=== PATIENT | female | born 1950 | race African-American/Black ===

== ENCOUNTER 2020-06-09 07:21 | Inpatient (IN) ==
[2020-06-09] MEDS ORDERED: PIPERACILLIN/TAZOBACTAM 3,375 MG in SODIUM CHLORIDE 0.9% 100 ML IV STA (07:47)
[2020-06-09] MEDS ORDERED: SODIUM CHLORIDE 0.9% 1,000 ML IV STA (07:47)
[2020-06-09 08:22] LABS: Basophils % 0.2 % (0.0-0.8); Eosinophils % 0.1 % (0.00-10.9); Hematocrit 41.3 VOL% (35.7-47.0); Hemoglobin 13.7 GM/DL (12.0-16.0); Immature Granulocytes % 0.6 %; Immature Granulocytes Absolute 0.12 #; Lymphocytes # 2.8 10*3/uL (1.4-4.0); Lymphocytes % 14.5 % (21.3-54.2); Mean Corpuscular HGB Conc 33.2 GM/DL (32-36); Mean Corpuscular Volume 98.6 FL (87-102); Mean Platelet Volume 10.4 FL (9.6-12.0); Monocytes % 13.2 % (1.7-12.7); Neutrophils % 71.4 % (38.7-73.9); Platelet Count 311 T/CUMM (130-400); Red Blood Count 4.19 MC/CUMM (3.8-5.5); Red Cell Distribution Width 14.4 % (9.3-17.3); White Blood Count 18.9 T/CUMM (4-12)
[2020-06-09 08:42] LABS: Bacteria,Urine Occasional /HPF (Few); Bilirubin,Urine Negative (Negative); Blood, Urine Moderate mg/dL (Negative); Glucose,Urine (UA) Negative (Negative); Ketones,Urine 5 mg/dL (Negative); Mucus,Urine Many /LPF (Occasional); Nitrite,Urine Negative (Negative); Protein,Urine 30 MG/DL; RBC,Urine 30 /HPF (0-4); Squamous Epithelial Cell,Urine Moderate /HPF (0-10); Urine Appearance Slightly Hazy (Clear); Urine Color Amber (Yellow); Urine Specific Gravity 1.025 (1.001-1.035); WBC,Urine 2 /HPF (0-6)
[2020-06-09 08:55] LABS: Osmolality,Calculated 274.8 MOS/KG (273-304)
[2020-06-09] MEDS ORDERED: ONDANSETRON 4 MG/2 ML VIAL IV STA (09:32)
[2020-06-09] MEDS ORDERED: HYDROmorphone 2 MG/1 ML VIAL IV STA (09:32)
[2020-06-09] MEDS ORDERED: ONDANSETRON 4 MG/2 ML VIAL ONE (09:33)
[2020-06-09] MEDS ORDERED: HYDROmorphone 2 MG/1 ML VIAL ONE (09:33)
[2020-06-09] MEDS ORDERED: DEXTROSE 50% 25 GM/50 ML VIAL IV PRN (10:25)
[2020-06-09] MEDS ORDERED: GLUCAGON 1 MG VIAL IM PRN (10:25)
[2020-06-09] MEDS ORDERED: MORPHINE 4 MG/1 ML VIAL IV PRN (10:25)
[2020-06-09] MEDS ORDERED: ONDANSETRON 4 MG/2 ML VIAL IV PRN (10:25)
[2020-06-09] MEDS ORDERED: ALBUTEROL 2.5 MG/3 ML NEB RESP TX PRN (10:29)
[2020-06-09] MEDS: PANTOPRAZOLE 40 MG VIAL IV SCH (19:27)
[2020-06-09] MEDS: metroNIDAZOLE INJ 500 MG in PREMIX 1 EACH IV SCH ×2 (19:52→20:29)
[2020-06-09] MEDS: cefTRIAXone 2,000 MG in SYRINGE 1 EACH IV SCH (19:53)
[2020-06-09] MEDS: ENOXAPARIN 40 MG/0.4 ML SYRINGE SUBCUT SCH (19:53)
[2020-06-09] MEDS: MONTELUKAST 10 MG TABLET PO SCH (21:08)
[2020-06-09] MEDS: BUDESONIDE/FORMOTEROL 160-4.5 INHALER 6 GM INH SCH (21:09)
[2020-06-09] MEDS: SODIUM CHLORIDE 0.9% 1,000 ML IV SCH ×2 (21:10)
[2020-06-10] MEDS: metroNIDAZOLE INJ 500 MG in PREMIX 1 EACH IV SCH ×3 (02:06→20:11)
[2020-06-10] MEDS: SODIUM CHLORIDE 0.9% 1,000 ML IV SCH ×5 (04:35→17:26)
[2020-06-10 06:23] LABS: Basophils % 0.2 % (0.0-0.8); Eosinophils % 0.4 % (0.00-10.9); Hematocrit 35.5 VOL% (35.7-47.0); Hemoglobin 11.3 GM/DL (12.0-16.0); Immature Granulocytes % 0.7 %; Immature Granulocytes Absolute 0.08 #; Lymphocytes # 2.6 10*3/uL (1.4-4.0); Lymphocytes % 22.9 % (21.3-54.2); Mean Corpuscular HGB Conc 31.8 GM/DL (32-36); Mean Corpuscular Volume 98.9 FL (87-102); Mean Platelet Volume 10.2 FL (9.6-12.0); Monocytes % 12.1 % (1.7-12.7); Neutrophils % 63.7 % (38.7-73.9); Platelet Count 266 T/CUMM (130-400); Red Blood Count 3.59 MC/CUMM (3.8-5.5); Red Cell Distribution Width 14.5 % (9.3-17.3); White Blood Count 11.3 T/CUMM (4-12)
[2020-06-10 06:40] LABS: Calcium 8.6 MG/DL (8.5-10.1); Osmolality,Calculated 278.4 MOS/KG (273-304)
[2020-06-10] MEDS: hydroCHLOROthiazide 25 MG TABLET PO SCH (11:59)
[2020-06-10] MEDS: PANTOPRAZOLE 40 MG VIAL IV SCH (11:59)
[2020-06-10] MEDS: BUDESONIDE/FORMOTEROL 160-4.5 INHALER 6 GM INH SCH ×2 (12:00→21:30)
[2020-06-10] MEDS: cefTRIAXone 2,000 MG in SYRINGE 1 EACH IV SCH (17:11)
[2020-06-10] MEDS: ENOXAPARIN 40 MG/0.4 ML SYRINGE SUBCUT SCH (17:11)
[2020-06-10] MEDS: MONTELUKAST 10 MG TABLET PO SCH (21:30)
[2020-06-11] MEDS: metroNIDAZOLE INJ 500 MG in PREMIX 1 EACH IV SCH ×2 (03:52→12:04)
[2020-06-11] MEDS: SODIUM CHLORIDE 0.9% 1,000 ML IV SCH ×3 (03:52→13:13)
[2020-06-11 06:18] LABS: Basophils % 0.3 % (0.0-0.8); Eosinophils % 0.4 % (0.00-10.9); Hematocrit 35.3 VOL% (35.7-47.0); Hemoglobin 11.3 GM/DL (12.0-16.0); Immature Granulocytes % 0.6 %; Immature Granulocytes Absolute 0.05 #; Lymphocytes % 33.3 % (21.3-54.2); Mean Platelet Volume 11.3 FL (9.6-12.0); Monocytes % 14.7 % (1.7-12.7); Neutrophils % 50.7 % (38.7-73.9); Platelet Count 282 T/CUMM (130-400); Red Blood Count 3.53 MC/CUMM (3.8-5.5); Red Cell Distribution Width 14.7 % (9.3-17.3); White Blood Count 8.9 T/CUMM (4-12)
[2020-06-11 06:32] LABS: Calcium 8.6 MG/DL (8.5-10.1)
[2020-06-11] MEDS: PANTOPRAZOLE 40 MG VIAL IV SCH (10:14)
[2020-06-11] MEDS: BUDESONIDE/FORMOTEROL 160-4.5 INHALER 6 GM INH SCH ×2 (10:15→21:47)
[2020-06-11] MEDS: hydroCHLOROthiazide 25 MG TABLET PO SCH (10:15)
[2020-06-11] MEDS: ENOXAPARIN 40 MG/0.4 ML SYRINGE SUBCUT SCH (16:58)
[2020-06-11] MEDS: CEFUROXIME 500 MG TABLET PO SCH (21:46)
[2020-06-11] MEDS: metroNIDAZOLE 500 MG TABLET PO SCH (21:46)
[2020-06-11] MEDS: MONTELUKAST 10 MG TABLET PO SCH (21:47)
[2020-06-12 06:27] LABS: Basophils % 0.4 % (0.0-0.8); Eosinophils % 0.5 % (0.00-10.9); Hematocrit 33.7 VOL% (35.7-47.0); Hemoglobin 10.9 GM/DL (12.0-16.0); Immature Granulocytes % 0.4 %; Immature Granulocytes Absolute 0.03 #; Lymphocytes # 2.9 10*3/uL (1.4-4.0); Lymphocytes % 36.8 % (21.3-54.2); Mean Corpuscular HGB Conc 32.3 GM/DL (32-36); Mean Corpuscular Volume 98.8 FL (87-102); Mean Platelet Volume 11.1 FL (9.6-12.0); Monocytes % 14.9 % (1.7-12.7); Platelet Count 322 T/CUMM (130-400); Red Blood Count 3.41 MC/CUMM (3.8-5.5); Red Cell Distribution Width 14.5 % (9.3-17.3)
[2020-06-12 06:38] LABS: Calcium 8.8 MG/DL (8.5-10.1)
[2020-06-12 06:51] LABS: Hypochromasia 1+; Lymphocytes 37 % (20-55); Platelet Estimate Adequate; Segmented Neutrophils 50 % (50-85); Total Cells Counted 100
[2020-06-12 06:52] LABS: Burr Cells Slight; Ovalocytes Slight
[2020-06-12] MEDS: hydroCHLOROthiazide 25 MG TABLET PO SCH (08:58)
[2020-06-12] MEDS: CEFUROXIME 500 MG TABLET PO SCH (08:59)
[2020-06-12] MEDS: metroNIDAZOLE 500 MG TABLET PO SCH (08:59)
[2020-06-12] MEDS: PANTOPRAZOLE 40 MG VIAL IV SCH (09:23)
[2020-06-12] MEDS: BUDESONIDE/FORMOTEROL 160-4.5 INHALER 6 GM INH SCH (09:24)
[2020-06-12 11:50] VITALS: BP 135/66
== END 2020-06-12 13:11 | disposition home or self-care (01) | DRG 392 ==
LOC: N.ED 07:21 → SUATTDRO 10:25 → N.EDINP 10:25 → N.3E 11:27
PROVIDERS: ADMIT Emergency Medicine; ATTEND Internal Medicine